=== PATIENT | male | born 1940 | race American Indian/Alaskan Native ===

== ENCOUNTER 2020-11-19 05:48 | Observation (INO) | payer MEDICARE ==
[2020-11-19 06:32] LABS: Basophils # (Auto) 0.1 K/mm3 (0.0-0.1); Eosinophils # (Auto) 0.2 K/mm3 (0.0-0.4); Eosinophils % (Auto) 4.6 % (0.0-4.3); Hemoglobin 14.1 gm/dl (11.8-15.2); Lymphocytes # (Auto) 1.7 K/mm3 (1.2-5.4); Lymphocytes % (Auto) 31.5 % (13.4-35.0); Mean Corpuscular HGB Conc 34 % (32-34); Mean Corpuscular Volume 97 fl (84-94); Monocytes # (Auto) 0.4 K/mm3 (0.0-0.8); Monocytes % (Auto) 6.7 % (0.0-7.3); Platelet Count 243 K/mm3 (140-440); Red Blood Count 4.35 M/mm3 (3.65-5.03); Red Cell Distribution Width 15.4 % (13.2-15.2)
[2020-11-19 06:44] LABS: INR 1.12 (0.87-1.13); Partial Thromboplastin Time 30.9 Sec. (24.2-36.6)
[2020-11-19] MEDS ORDERED: NITROGLYCERIN SYRINGE 0 ML ONE (07:10)
[2020-11-19] MEDS: SODIUM CHLORIDE 0.9% 500 ML 500 ML IV SCH ×3 (07:18→08:24)
[2020-11-19 07:22] LABS: BUN/Creatinine Ratio 13; Blood Urea Nitrogen 12 mg/dL (9-20); Hemolysis Index 2
[2020-11-19] MEDS: LIDOCAINE (2%) 20 MG/1 ML VIAL 20 ML MDV INFILTRATI ONE ×2 (08:07→08:24)
[2020-11-19] MEDS: fentaNYL 100 MCG/2 ML INJ ONE ×3 (08:07→08:42)
[2020-11-19] MEDS: MIDAZOLAM 2 MG/2 ML INJ ONE ×2 (08:07→08:23)
[2020-11-19] MEDS: VERAPAMIL 5 MG/2 ML INJ ONE ×3 (08:08→08:26)
[2020-11-19] MEDS: HEPARIN 10,000 UNITS/10 ML VIAL ONE ×4 (08:08→08:46)
[2020-11-19] MEDS: HEPARIN/NS 5000 UNIT/500ML 1,000 ML IR ONE ×2 (08:09→08:24)
[2020-11-19] MEDS: NITROGLYCERIN SYRINGE 3 ML ONE ×3 (08:10→08:26)
[2020-11-19] MEDS ORDERED: NITROGLYCERIN SYRINGE 3 ML ONE (08:58)
[2020-11-19] MEDS ORDERED: ALUM-MAG HYDROXIDE-SIMETHICONE 200-200-20MG/5ML ORAL LIQD 30 ML ONE (09:01)
[2020-11-19] MEDS ORDERED: CLOPIDOGREL 75 MG TAB ONE (09:01)
[2020-11-19] MEDS ORDERED: HEPARIN 10,000 UNITS/10 ML VIAL ONE (09:01)
[2020-11-19] MEDS ORDERED: HYDROcodone/ACETAMINOPHEN 5-325 MG TAB PO PRN (10:48)
[2020-11-19] MEDS ORDERED: ONDANSETRON 4 MG/2 ML INJ IV PRN (10:48)
[2020-11-19] MEDS ORDERED: SODIUM CHLORIDE 0.9% 1000 ML 1,000 ML IV SCH (11:00)
--- NOTE | 2020-11-19 11:09 | Event Note ---
Date: 11/19/20 Status post outpatient cardiac cath with PCI of the proximal LAD in stent restenosis. See cath report for details. Admit for post PCI obs and anticipate discharge tomorrow am.
--- NOTE | 2020-11-19 11:37 | Cardiac Catherization Report ---
CARDIAC CATHETERIZATION AND CORONARY ANGIOPLASTY REPORT REASON FOR PROCEDURE: Chest pain, history of coronary artery disease. The patient is an 80-year-old man with a history of 2-vessel coronary artery disease, status post prior stents in the LAD and right coronary arteries, presents with progressive unstable angina, recommended for outpatient cardiac catheterization. PROCEDURES: 1. Left heart catheterization. 2. Selective left and right coronary angiography. 3. Left ventricular angiography. 4. Angioplasty and stenting of the proximal to mid left anterior descending artery. 5. Sedation time, start 0823 hours, end 0900 hours. DESCRIPTION OF PROCEDURE: The patient was prepped and draped in a sterile fashion after informed consent. I was present for the entire procedure and supervised the moderate sedation protocol. The right radial cath site was prepped and draped after a negative David's test. The right radial artery was entered using Seldinger technique followed by placement of a 6-Albanian hydrophilic sheath. Routine radial cocktail was administered via the sheath. Selective left and right coronary angiography was performed using #3.5 left Aileen, and a #4 right Aileen. A pigtail catheter was used for left ventricular angiography. The angiograms were reviewed. FINDINGS: HEMODYNAMICS: Left ventricular end-diastolic pressure was 18, following coronary angiography. Ascending aortic pressure of 169/94. There was no significant pressure gradient on pullback across the aortic valve. CORONARY ANGIOGRAPHY: The left main coronary artery was free of significant disease. A stent was visible in the proximal to mid LAD. There was greater than 99% restenosis of the proximal border of the stented segment. This was followed by diffuse moderate restenosis involving the proximal two-thirds of the stented segment. The diagonal branches were of small to medium caliber and contained moderate diffuse atherosclerosis. The mid obtuse marginal branch of the circumflex artery was a small to medium sized vessel that contained a long 70% stenosis. Following this, the AV groove circumflex terminated in a large distal obtuse marginal. There was another, long 70-75% stenosis leading to this terminal branch. The right coronary artery was dominant. A stent was visible in the mid right coronary artery. There was a long segment of moderate disease with moderate in-stent restenosis of the mid right coronary artery. There was an up to 60-70% luminal stenosis. Another, focal 50-60% stenosis of the distal right coronary artery was located just after the origin of the posterior descending branch, and leading to a medium to large posterolateral branch. There was overall mild left ventricular systolic dysfunction with ejection fraction of 40-45%, with moderate to severe hypokinesis of the distal anterior wall and apex. CORONARY ANGIOPLASTY: After review of the angiograms, we recommended ad hoc angioplasty of the 99% proximal to mid LAD stenosis. We selected a #3.0 XB guiding catheter and advanced to the left coronary ostium. A 0.014 inch Administrative Secretary 50 ____ was transitioned across the lesional segment, after wire placement, we predilated the LAD using a 3.0 mm balloon catheter, then deployed a 3.5 x 22 mm Resolute drug-eluting stent across the lesional segment, covering both the proximal border restenosis and the remainder of the stented segment. The stent was inflated to optimal pressures and additional post-procedure dilatation was performed. Following treatment as described above, there was an excellent angiographic result, 0 residual stenosis and CLAUDIA 3 flow was restored. The catheters and the wires were removed, the patient returned to the postprocedure unit in stable condition. There were no complications. CONCLUSIONS: 1. Multivessel coronary artery disease. 2. Greater than 95% in-stent restenosis of the proximal to mid left anterior descending stent. 3. Moderate to severe de jo disease of the distal circumflex artery. 4. Moderate diffuse atherosclerosis and restenosis of the mid right coronary artery stent. 5. Successful angioplasty and stenting of the LAD with an excellent angiographic result after implantation of a 3.5 x 22 mm drug-eluting stent. 6. Mild left ventricular systolic dysfunction, ejection fraction 40-45%. RECOMMENDATION: Aggressive risk factor modification and medical therapy. The patient will be considered for a second vessel intervention to the distal circumflex artery if clinically indicated. JOB# [id number] CA/NTS
[2020-11-19] MEDS: METOPROLOL TARTRATE 25 MG TAB PO SCH (14:05)
[2020-11-19] MEDS: LISINOPRIL 20 MG TAB PO SCH (15:21)
[2020-11-19] MEDS ORDERED: ZOLPIDEM 5 MG TAB PO PRN (22:00)
[2020-11-20] MEDS ORDERED: CLOPIDOGREL 75 MG TAB PO SCH ×2 (04:45→10:00)
[2020-11-20 06:48] LABS: Basophils # (Auto) 0.1 K/mm3 (0.0-0.1); Basophils % (Auto) 1.4 % (0.0-1.8); Eosinophils # (Auto) 0.2 K/mm3 (0.0-0.4); Eosinophils % (Auto) 4.2 % (0.0-4.3); Hematocrit 37.9 % (35.5-45.6); Hemoglobin 12.8 gm/dl (11.8-15.2); Lymphocytes # (Auto) 1.2 K/mm3 (1.2-5.4); Lymphocytes % (Auto) 27.7 % (13.4-35.0); Mean Corpuscular HGB Conc 34 % (32-34); Mean Corpuscular Volume 96 fl (84-94); Monocytes # (Auto) 0.4 K/mm3 (0.0-0.8); Monocytes % (Auto) 8.1 % (0.0-7.3); Platelet Count 202 K/mm3 (140-440); Red Blood Count 3.97 M/mm3 (3.65-5.03); Red Cell Distribution Width 15.2 % (13.2-15.2)
[2020-11-20 07:03] LABS: Creatine Kinase MB 6.3 ng/mL (0.0-4.0)
[2020-11-20 07:07] LABS: BUN/Creatinine Ratio 11; Blood Urea Nitrogen 9 mg/dL (9-20); Calcium 8.3 mg/dL (8.4-10.2); Hemolysis Index 7
[2020-11-20 07:23] LABS: Chol/HDL Ratio 3.17 %; HDL Cholesterol 34 mg/dL (40-59); LDL Cholesterol,Direct 75 mg/dL (50-130)
--- NOTE | 2020-11-20 08:20 | XRay Report ---
XR chest 1V ap INDICATION / CLINICAL INFORMATION: post pci COMPARISON: None available. FINDINGS: SUPPORT DEVICES: None. HEART / MEDIASTINUM: No significant abnormality. LUNGS / PLEURA: Mild pulmonary vascular congestion. No definite airspace disease. Costophrenic sulci are sharp. No pneumothorax. ADDITIONAL FINDINGS: No significant additional findings. IMPRESSION: 1. Mild pulmonary vascular congestion. Signer Name: Mikey Ayala MD Signed: 11/20/2020 8:16 AM Workstation Name: [id number] [email or web address]
[2020-11-20] MEDS: METOPROLOL TARTRATE 25 MG TAB PO SCH (09:28)
[2020-11-20] MEDS: LISINOPRIL 20 MG TAB PO SCH (09:28)
[2020-11-20] MEDS ORDERED: ASPIRIN EC 325 MG TAB PO SCH (10:00)
[2020-11-20] MEDS ORDERED: ASPIRIN EC 81 MG TAB PO SCH (10:00)
--- NOTE | 2020-11-20 10:35 | Short Stay Summary ---
Short Stay Documentation Date of service: 11/20/20 - History H&P: obtained from office - Allergies and Medications Current Medications: Allergies No Known Allergies Allergy (Unverified 03/06/15 13:24) Home Medications Medication Instructions Recorded Confirmed Last Taken Type Aspirin EC [Halfprin EC] 81 mg PO QDAY 11/19/20 11/19/20 11/19/20 04:45 History 81 mg AtorvaSTATin [Lipitor] 40 mg PO DAILY 11/19/20 11/19/20 11/19/20 04:45 History 40 mg Clopidogrel [Plavix] 75 mg PO 0445 11/19/20 11/19/20 11/19/20 04:45 History 75 mg Metoprolol [Lopressor] 25 mg PO DAILY 11/19/20 11/19/20 11/19/20 04:45 History 25 mg Umeclidinium Brm/Vilanterol Tr 1 each IH PRN PRN 11/19/20 11/19/20 11/12/20 History [Anoro Ellipta 62.5-25 Mcg INH] 1 dose lisinopriL [Zestril TAB] 20 mg PO DAILY 11/19/20 11/19/20 11/19/20 04:45 History 20 mg Active Medications Hydrocodone Bitart/Acetaminophen (Hydrocodone/Acetaminophen 5-325 Mg Tab) 1 each PO Q6H PRN PRN Reason: Pain, Moderate (4-6) Last Admin: 11/19/20 12:02 Dose: 1 each Documented by: Aspirin (Aspirin Ec 81 Mg Tab) 81 mg PO QDAY [facility] Last Admin: 11/20/20 09:27 Dose: 81 mg Documented by: Atorvastatin Calcium (Atorvastatin 40 Mg Tab) 40 mg PO DAILY [facility] Last Admin: 11/20/20 09:27 Dose: 40 mg Documented by: Clopidogrel Bisulfate (Clopidogrel 75 Mg Tab) 75 mg PO 5 [facility] Last Admin: 11/20/20 04:53 Dose: 75 mg Documented by: Lisinopril (Lisinopril 20 Mg Tab) 20 mg PO DAILY [facility] Last Admin: 11/20/20 09:28 Dose: 20 mg Documented by: Metoprolol Tartrate (Metoprolol Tartrate 25 Mg Tab) 25 mg PO DAILY [facility] Last Admin: 11/20/20 09:28 Dose: 25 mg Documented by: Ondansetron HCl (Ondansetron 4 Mg/2 Ml Inj) 4 mg IV Q8H PRN PRN Reason: N/V unrelieved by Reglan Zolpidem Tartrate (Zolpidem 5 Mg Tab) 5 mg PO QHS PRN PRN Reason: Sleep - Physical exam General appearance: no acute distress HEENT: PERRLA Lungs: Clear to auscultation Heart: Regular rate, Normal S1, Normal S2, No murmurs Extremities: No edema, Full ROM - Hospital course Hospital course: Stable overnight observation. - Disposition Condition at discharge: Stable Disposition: [id number] TO HOME OR SELFCARE Short Stay Discharge Plan Activity: advance as tolerated Weight Bearing Status: Weight Bear as Tolerated Diet: low fat, low cholesterol, low salt Wound: open to air, keep clean and dry Additional Instructions: Continue all home medications including Plavix and low dose aspirin without interruption. Follow up with: PRIMARY CARE, [Primary Care Provider] - 7 Days Forms: CardCath PCI D/C Instructions
[2020-11-20 12:16] VITALS: BP 156/100
== END 2020-11-20 14:20 | disposition home or self-care (01) ==
LOC: CATHLABREC 05:48 → 4A 10:48
PROVIDERS: ADMIT Internal Medicine Cardiovascular Disease; ATTEND Internal Medicine Cardiovascular Disease
DX: I25.10 Atherosclerotic heart disease of native coronary artery without angina pectoris (principal); I10 Essential (primary) hypertension; I05.9 Rheumatic mitral valve disease, unspecified; E78.5 Hyperlipidemia, unspecified; R94.31 Abnormal electrocardiogram [ECG] [EKG]; Z98.61 Coronary angioplasty status; Z79.82 Long term (current) use of aspirin; Z79.899 Other long term (current) drug therapy
CPT/HCPCS: 36415; 71045; 80048; 80061; 82550; 82553; 84484; 85025; 85610; 85730; 93005; 93458; A9270; C1725; C1769; C1874; C1887; C1894; C9600; G0378; J1644; J2250; J3010; J7040; 92928; Q9967